=== PATIENT | male | born 1935 | race Caucasian/White ===

== ENCOUNTER → 2016-10-21 | Outpatient (CLI) | payer MEDICARE, MEDICAID ==
[~2016-10-21] MED LIST: ALPR0.254 PO; ASPI81TA27 PO; CARV3.1213 OR; CLOP75TA28 PO; DUTA0.5C11 PO; FUR40T PO; LACT10SO PO; LISI-646 PO; MORP1TAB13 PO; NOR10T PO; OMEP20CA5 PO; OXY20CRT PO; RANI1TAB4 PO; TAMS0.4C36 PO
[2016-10-21 16:31] LABS: Basophils # (auto) 0 uL; Basophils % (auto) 0.5 % (0.0-2.0); DEFINITIVE VIEW TRANSMISSION; Eosinophils # (auto) 0.1 uL; Eosinophils % (auto) 1.1 % (0.0-7.0); Hematocrit 24.4 % (41.0-53.0); Mean Corpuscular Hemoglobin 31.7 pg (28.0-32.0); Mean Corpuscular Volume 96.2 fL (80.0-100.0); Mean Platelet Volume 7.2 fL (7.4-10.4); Monocytes # (auto) 0.5 uL; Monocytes % (auto) 8.9 % (0.0-12.0); Neutrophils # (auto) 4.3 uL; Neutrophils % (auto) 72.5 % (37.0-80.0); Platelet Count (auto) 236 10^3/uL (140-450); Red Cell Distribution Width 15.1 % (11.6-16.0); White Blood Cell 5.9 10^3/uL (4.4-10.8)
[2016-10-21 16:33] LABS: BUN/Creatinine Ratio 21.3; Potassium 4.5 mmol/L (3.5-5.1)
== END | disposition home or self-care (01) ==
LOC: LAB 12:46
PROVIDERS: ATTEND Internal Medicine Cardiovascular Disease
DX: I10 Essential (primary) hypertension (principal); D64.9 Anemia, unspecified
CPT/HCPCS: 36415; 80048; 85025; 85049

== ENCOUNTER → 2017-01-06 | Outpatient (CLI) | payer MEDICARE, MEDICAID ==
[2017-01-06 16:13] LABS: Basophils # (auto) 0 uL; DEFINITIVE VIEW TRANSMISSION; Eosinophils # (auto) 0 uL; Eosinophils % (auto) 0.5 % (0.0-7.0); Hemoglobin 7.6 g/dL (13.5-17.5); Mean Corpuscular Hemoglobin 25.4 pg (28.0-32.0); Mean Corpuscular Hgb Conc. 32.1 g/dL (32.0-36.0); Urine Bilirubin Negative (Negative); Urine Blood Negative /uL (Negative); Urine Color Yellow (Yellow); Urine Glucose Normal (Normal); Urine Ketone Negative (Negative); Urine Nitrite Negative (Negative); Urine Urobilinogen Normal (Negative); Urine pH 5.5 (5.0-8.0)
[2017-01-06 16:25] LABS: Basophils % (auto) 0.5 % (0.0-2.0); Hematocrit 23.7 % (41.0-53.0); Lymphocytes # (auto) 0.9 uL; Lymphocytes % (auto) 14.8 % (10.0-50.0); Mean Platelet Volume 7.4 fL (7.4-10.4); Monocytes # (auto) 0.7 uL; Monocytes % (auto) 11.9 % (0.0-12.0); Neutrophils # (auto) 4.5 uL; Neutrophils % (auto) 72.3 % (37.0-80.0); Platelet Count (auto) 335 10^3/uL (140-450); Red Cell Distribution Width 18.8 % (11.6-16.0); White Blood Cell 6.3 10^3/uL (4.4-10.8)
[2017-01-06 16:51] LABS: Albumin 3.6 g/dL (3.4-5.0); BUN/Creatinine Ratio 17.2; Bilirubin, Direct 0.1 mg/dL (0-0.2); Bilirubin, Total 0.4 mg/dL (0.2-1.0); Calcium 9.5 mg/dL (8.5-10.1); Total Protein 7.8 g/dL (6.4-8.2)
[2017-01-06 17:13] LABS: Potassium 2.3 mmol/L (3.5-5.1)
== END | disposition home or self-care (01) ==
LOC: LAB 12:40
PROVIDERS: ATTEND Internal Medicine Cardiovascular Disease
DX: I10 Essential (primary) hypertension (principal); E78.00 Pure hypercholesterolemia, unspecified; K74.1 Hepatic sclerosis; E11.9 Type 2 diabetes mellitus without complications; R97.20 Elevated prostate specific antigen [PSA]; R53.81 Other malaise; E03.9 Hypothyroidism, unspecified; D64.9 Anemia, unspecified; E55.9 Vitamin D deficiency, unspecified; N39.0 Urinary tract infection, site not specified
CPT/HCPCS: 36415; 80048; 80061; 80076; 81003; 82306; 83036; 84403; 84439; 84443; 85025; 87086

== ENCOUNTER → 2017-01-12 | Outpatient (CLI) | payer MEDICARE, MEDICAID ==
[2017-01-12 12:40] VITALS: BP 110/70
[2017-01-12 13:10] VITALS: BP 94/50
== END | disposition home or self-care (01) ==
LOC: CHF HDHVI 12:20
PROVIDERS: ATTEND Internal Medicine Cardiovascular Disease
DX: I10 Essential (primary) hypertension (principal); I73.9 Peripheral vascular disease, unspecified; I25.10 Atherosclerotic heart disease of native coronary artery without angina pectoris; D64.9 Anemia, unspecified; E78.5 Hyperlipidemia, unspecified; R53.1 Weakness
CPT/HCPCS: G0463

== ENCOUNTER → 2017-01-31 | Outpatient (CLI) | payer MEDICARE, MEDICAID ==
[~2017-01-31] MED LIST changes: +CYANOCOBALAMIN (B-12) 1000 MCG/1 ML VIAL ONE; +CYANOCOBALAMIN 500 MCG TAB PO ONE; +TESTOSTERONE CYPIONATE 200 MG/ML 1ML VIAL IM ONE
[2017-01-31 14:15] VITALS: BP 92/46
[2017-01-31 15:30] VITALS: BP 132/50
[2017-01-31 16:28] LABS: Potassium 4.6 mmol/L (3.5-5.1)
[2017-01-31 16:48] LABS: Basophils # (auto) 0 uL; Basophils % (auto) 0.5 % (0.0-2.0); DEFINITIVE VIEW TRANSMISSION; Eosinophils # (auto) 0.1 uL; Eosinophils % (auto) 1.8 % (0.0-7.0); Hematocrit 32.1 % (41.0-53.0); Hemoglobin 10.3 g/dL (13.5-17.5); Lymphocytes # (auto) 0.9 uL; Lymphocytes % (auto) 14.3 % (10.0-50.0); Mean Corpuscular Hemoglobin 25.3 pg (28.0-32.0); Mean Corpuscular Volume 79.1 fL (80.0-100.0); Mean Platelet Volume 7.6 fL (7.4-10.4); Monocytes # (auto) 0.5 uL; Monocytes % (auto) 7.4 % (0.0-12.0); Neutrophils # (auto) 4.6 uL; Platelet Count (auto) 348 10^3/uL (140-450); White Blood Cell 6.1 10^3/uL (4.4-10.8)
[2017-01-31 18:03] LABS: Anisocytosis Slight; Hypochromia Slight; Platelet Estimate Adequate
== END | disposition home or self-care (01) ==
LOC: CHF HDHVI 14:09
PROVIDERS: ATTEND Internal Medicine Cardiovascular Disease
DX: R94.4 Abnormal results of kidney function studies (principal); D64.9 Anemia, unspecified; R97.20 Elevated prostate specific antigen [PSA]; E78.6 Lipoprotein deficiency
CPT/HCPCS: 36415; 82565; 84132; 84153; 84520; 85025; 96372; G0463; J1071

== ENCOUNTER → 2017-02-03 | Outpatient (CLI) | payer MEDICARE, MEDICAID ==
[~2017-02-03] MED LIST changes: -CYANOCOBALAMIN (B-12) 1000 MCG/1 ML VIAL ONE; -CYANOCOBALAMIN 500 MCG TAB PO ONE; -TESTOSTERONE CYPIONATE 200 MG/ML 1ML VIAL IM ONE
[2017-02-03 13:00] VITALS: BP 126/48
[2017-02-03 13:50] VITALS: BP 112/51
== END | disposition home or self-care (01) ==
LOC: CHF HDHVI 15:13
PROVIDERS: ATTEND Internal Medicine Cardiovascular Disease
CPT/HCPCS: G0463

== ENCOUNTER → 2017-02-07 | Outpatient (CLI) | payer MEDICARE, MEDICAID ==
[2017-02-07 11:15] VITALS: BP 110/49
[2017-02-07 12:05] VITALS: BP 90/45
== END | disposition home or self-care (01) ==
LOC: CHF HDHVI 11:13
PROVIDERS: ATTEND Internal Medicine Cardiovascular Disease
DX: I50.9 Heart failure, unspecified (principal); I70.90 Unspecified atherosclerosis
CPT/HCPCS: G0463

== ENCOUNTER → 2017-02-10 | Outpatient (CLI) | payer MEDICARE, MEDICAID ==
[2017-02-10 13:30] VITALS: BP 107/49
[2017-02-10 14:30] VITALS: BP 113/52
== END | disposition home or self-care (01) ==
LOC: CHF HDHVI 13:26
PROVIDERS: ATTEND Internal Medicine Cardiovascular Disease
DX: I11.0 Hypertensive heart disease with heart failure (principal); I50.9 Heart failure, unspecified; I73.9 Peripheral vascular disease, unspecified; D64.9 Anemia, unspecified; E78.5 Hyperlipidemia, unspecified; R60.0 Localized edema; I83.018 Varicose veins of right lower extremity with ulcer other part of lower leg; T24.211A Burn of second degree of right thigh, initial encounter; X08.8XXA Exposure to other specified smoke, fire and flames, initial encounter; Y93.89 Activity, other specified; Y92.89 Other specified places as the place of occurrence of the external cause; Y99.8 Other external cause status
CPT/HCPCS: G0463

== ENCOUNTER → 2017-02-13 | Outpatient (CLI) | payer MEDICARE, MEDICAID ==
[2017-02-13 12:45] VITALS: BP 113/49
[2017-02-13 13:55] VITALS: BP 106/49
== END | disposition home or self-care (01) ==
LOC: CHF HDHVI 13:07
PROVIDERS: ATTEND Internal Medicine Cardiovascular Disease
DX: I11.0 Hypertensive heart disease with heart failure (principal); I50.9 Heart failure, unspecified; I25.10 Atherosclerotic heart disease of native coronary artery without angina pectoris; D64.9 Anemia, unspecified; I87.2 Venous insufficiency (chronic) (peripheral); E55.9 Vitamin D deficiency, unspecified; E78.5 Hyperlipidemia, unspecified; T24.011A Burn of unspecified degree of right thigh, initial encounter; X58.XXXA Exposure to other specified factors, initial encounter; Y93.89 Activity, other specified; Y92.89 Other specified places as the place of occurrence of the external cause; Y99.8 Other external cause status
CPT/HCPCS: G0463

== ENCOUNTER → 2017-02-22 | Outpatient (CLI) | payer MEDICARE, MEDICAID ==
[~2017-02-22] MED LIST changes: +SILVER SULFADIAZINE 1 % TOPICAL CREAM 50GM TOP ONE
[2017-02-22 11:30] VITALS: BP 154/50
[2017-02-22 12:30] VITALS: BP 114/55
== END | disposition home or self-care (01) ==
LOC: CHF HDHVI 11:16
PROVIDERS: ATTEND Internal Medicine Cardiovascular Disease
DX: R89.9 Unspecified abnormal finding in specimens from other organs, systems and tissues (principal)
CPT/HCPCS: 87205

== ENCOUNTER → 2017-03-01 | Outpatient (CLI) | payer MEDICARE, MEDICAID ==
[2017-03-01 12:10] VITALS: BP 94/48
[2017-03-01 13:00] VITALS: BP 116/53
== END | disposition home or self-care (01) ==
LOC: CHF HDHVI 12:16
PROVIDERS: ATTEND Internal Medicine Cardiovascular Disease
DX: S71.101A Unspecified open wound, right thigh, initial encounter (principal); S91.301A Unspecified open wound, right foot, initial encounter; I50.9 Heart failure, unspecified; I73.9 Peripheral vascular disease, unspecified; E87.70 Fluid overload, unspecified; R60.0 Localized edema; X58.XXXA Exposure to other specified factors, initial encounter; Y93.89 Activity, other specified; Y92.89 Other specified places as the place of occurrence of the external cause; Y99.8 Other external cause status
CPT/HCPCS: G0463

== ENCOUNTER → 2017-03-10 | Outpatient (CLI) | payer MEDICARE, MEDICAID ==
[~2017-03-10] MED LIST changes: +CAR3125T OR; -CARV3.1213 OR; -LACT10SO PO; +LACT10SO3 PO; -OMEP20CA5 PO; +OMEP20CA74 PO; +SILVER SULFADIAZINE 1 % TOPICAL CREAM 50GM TOP SCH
[2017-03-10 13:00] VITALS: BP 148/75
[2017-03-10 14:49] VITALS: BP 131/67
== END | disposition home or self-care (01) ==
LOC: CHF HDHVI 11:14
PROVIDERS: ATTEND Internal Medicine Cardiovascular Disease
DX: I87.2 Venous insufficiency (chronic) (peripheral) (principal); L97.119 Non-pressure chronic ulcer of right thigh with unspecified severity; L97.319 Non-pressure chronic ulcer of right ankle with unspecified severity; I50.9 Heart failure, unspecified; I73.9 Peripheral vascular disease, unspecified; E87.70 Fluid overload, unspecified; E78.5 Hyperlipidemia, unspecified
CPT/HCPCS: G0463

== ENCOUNTER → 2017-03-28 | Outpatient (CLI) | payer MEDICARE, MEDICAID ==
[~2017-03-28] MED LIST changes: -SILVER SULFADIAZINE 1 % TOPICAL CREAM 50GM TOP ONE; -SILVER SULFADIAZINE 1 % TOPICAL CREAM 50GM TOP SCH
== END | disposition home or self-care (01) ==
LOC: Rad HDHVI 11:44
PROVIDERS: ATTEND Internal Medicine Cardiovascular Disease
DX: I73.9 Peripheral vascular disease, unspecified (principal)
CPT/HCPCS: 93926

== ENCOUNTER → 2017-04-27 | Outpatient (CLI) | payer MEDICARE, MEDICAID ==
[2017-04-27 16:29] LABS: Basophils # (auto) 0 uL; Basophils % (auto) 0.7 % (0.0-2.0); CONDITION Y; Eosinophils # (auto) 0.1 uL; Eosinophils % (auto) 2.5 % (0.0-7.0); Hematocrit 33.8 % (41.0-53.0); Hemoglobin 11.4 g/dL (13.5-17.5); Lymphocytes # (auto) 1.1 uL; Lymphocytes % (auto) 23.2 % (10.0-50.0); Mean Corpuscular Hemoglobin 28.5 pg (28.0-32.0); Mean Corpuscular Hgb Conc. 33.8 g/dL (32.0-36.0); Mean Corpuscular Volume 84.2 fL (80.0-100.0); Mean Platelet Volume 8.2 fL (7.4-10.4); Monocytes # (auto) 0.5 uL; Monocytes % (auto) 10.5 % (0.0-12.0); Neutrophils # (auto) 2.9 uL; Neutrophils % (auto) 63.1 % (37.0-80.0); Platelet Count (auto) 262 10^3/uL (140-450); Red Cell Distribution Width 17.8 % (11.6-16.0); White Blood Cell 4.6 10^3/uL (4.4-10.8)
[2017-04-27 16:49] LABS: Albumin 3.4 g/dL (3.4-5.0); Alkaline Phosphatase 71 U/L (45-117); Amylase 35 U/L (25-115); Anion Gap 8 (5-15); Aspartate Aminotransferase 12 U/L (15-37); BUN/Creatinine Ratio 20.7; Bilirubin, Direct < 0.1 mg/dL (0-0.2); Bilirubin, Total 0.3 mg/dL (0.2-1.0); Blood Urea Nitrogen 28 mg/dL (7-18); Calcium 8.9 mg/dL (8.5-10.1); Carbon Dioxide 26 mmol/L (21-32); Chloride 102 mmol/L (98-107); Cholesterol 151 mg/dL (< 200); GFR African American 65 mL/min; GFR Non-African American 54 mL/min; Glucose 97 mg/dL (74-106); HDL Cholesterol 27 mg/dL (40-59); LDL Cholesterol 99 mg/dL (< 100); Potassium 4.9 mmol/L (3.5-5.1); Sodium 136 mmol/L (136-145); Total Protein 7.3 g/dL (6.4-8.2); Triglycerides 161 mg/dL (< 150)
== END | disposition home or self-care (01) ==
LOC: LAB 12:30
PROVIDERS: ATTEND Internal Medicine Cardiovascular Disease
DX: I10 Essential (primary) hypertension (principal); E78.00 Pure hypercholesterolemia, unspecified; K74.1 Hepatic sclerosis; E11.9 Type 2 diabetes mellitus without complications; D64.9 Anemia, unspecified; E55.9 Vitamin D deficiency, unspecified
CPT/HCPCS: 36415; 80048; 80061; 80076; 82150; 83036; 83690; 84443; 85025

== ENCOUNTER → 2017-05-24 | Outpatient (CLI) | payer MEDICARE, MEDICAID ==
[~2017-05-24] MED LIST changes: +BUPR8MIS SL; -CLOP75TA28 PO; +CLOP75TA41 PO; +FER300LQ PO; -FUR40T PO; +FURO20TA3 PO; -LISI-646 PO; +LISI40TA PO; +MEGE40TA15 PO; +METO2.5T11 PO; +PANC24002 PO; +POTA10TA34 PO; +PREG50CA PO
[2017-05-24 12:38] LABS: Basophils # (auto) 0 uL; Basophils % (auto) 0.4 % (0.0-2.0); CONDITION Y; Eosinophils # (auto) 0.1 uL; Eosinophils % (auto) 1.6 % (0.0-7.0); Hematocrit 36.3 % (41.0-53.0); Hemoglobin 12.3 g/dL (13.5-17.5); Lymphocytes % (auto) 11.8 % (10.0-50.0); Mean Corpuscular Hemoglobin 29.3 pg (28.0-32.0); Mean Corpuscular Volume 86.3 fL (80.0-100.0); Mean Platelet Volume 7.7 fL (7.4-10.4); Monocytes # (auto) 0.7 uL; Monocytes % (auto) 8.6 % (0.0-12.0); Neutrophils # (auto) 6.4 uL; Neutrophils % (auto) 77.6 % (37.0-80.0); Platelet Count (auto) 370 10^3/uL (140-450); Red Cell Distribution Width 15.7 % (11.6-16.0); White Blood Cell 8.3 10^3/uL (4.4-10.8)
[2017-05-24 13:25] LABS: Calcium 9.1 mg/dL (8.5-10.1)
== END | disposition home or self-care (01) ==
LOC: LAB 10:16
PROVIDERS: ATTEND Internal Medicine Cardiovascular Disease
DX: I10 Essential (primary) hypertension (principal); D64.9 Anemia, unspecified; G45.9 Transient cerebral ischemic attack, unspecified
CPT/HCPCS: 36415; 80048; 85025

== ENCOUNTER → 2017-06-27 | Outpatient (CLI) | payer MEDICARE, MEDICAID | END | disposition home or self-care (01) | LOC: LAB 10:10 | PROVIDERS: ATTEND Internal Medicine Cardiovascular Disease | DX: R19.5 Other fecal abnormalities (principal); I10 Essential (primary) hypertension | CPT/HCPCS: 82270 ==